=== PATIENT | female | born 1995 ===

== ENCOUNTER 2018-07-24 09:35 | Outpatient (CLI) | payer OTHER ==
[~2018-07-24] VITALS: Ht 154.9 cm; Wt 113.4 kg
== END 2018-07-24 09:50 | disposition home or self-care (01) ==
LOC: OFIC 805 09:35
DX: C73 Malignant neoplasm of thyroid gland (principal); J34.3 Hypertrophy of nasal turbinates; E66.8 Other obesity; J31.0 Chronic rhinitis; R22.1 Localized swelling, mass and lump, neck; J35.1 Hypertrophy of tonsils

== ENCOUNTER 2018-07-31 07:41 | Outpatient (CLI) | payer OTHER ==
[~2018-07-31] VITALS: Ht 152.4 cm; Wt 113.4 kg
[2018-07-31] MEDS ORDERED: FLONASE16 GM NASAL (10:29)
[2018-07-31] MEDS ORDERED: AMOX-CLAV 875-1 EACH PO (10:29)
[2018-07-31] MEDS ORDERED: ZYRTEC10 MG PO (10:29)
[2018-08-01] MEDS ORDERED: AUGMENTIN PO (10:34)
[2018-08-01] MEDS ORDERED: FLONASE PO (10:35)
== END 2018-07-31 08:00 | disposition home or self-care (01) ==
LOC: OFIC 805 07:41
DX: C73 Malignant neoplasm of thyroid gland (principal); E66.8 Other obesity; J31.0 Chronic rhinitis; J34.3 Hypertrophy of nasal turbinates; R22.1 Localized swelling, mass and lump, neck; J35.1 Hypertrophy of tonsils; J01.90 Acute sinusitis, unspecified

== ENCOUNTER 2018-08-01 08:15 | Inpatient (IN) | payer OTHER ==
[~2018-08-01] VITALS: Ht 154.9 cm; Wt 113.4 kg
[~2018-08-01 08:15] MED LIST: AMOX-CLAV 875-1 EACH PO; FLONASE16 GM NASAL; ZYRTEC10 MG PO
[2018-08-01] MEDS ORDERED: AUGMENTIN PO (10:34)
[2018-08-01] MEDS ORDERED: FLONASE PO (10:35)
[2018-08-08] MEDS ORDERED: FLONASE16 GM NASAL (09:45)
[2018-08-13] MEDS ORDERED: SULFAMETHOXAZO1 EACH PO (18:42)
== END 2018-08-14 13:49 | disposition home or self-care (01) | DRG 11 ==
LOC: SURH 08-06 08:15 → O/R 08-06 08:30 → SURH 08-06 10:15 → SURG 08-09 11:21
PROVIDERS: ADMIT Otolaryngology
PROC: 5A1945Z Respiratory Ventilation, 24-96 Consecutive Hours (ICD-10-PCS; 2018-08-06)
PROC: 3E0F7GC Introduction of Other Therapeutic Substance into Respiratory Tract, Via Natural or Artificial Opening (ICD-10-PCS; 2018-08-06)
PROC: B246ZZZ Ultrasonography of Right and Left Heart (ICD-10-PCS; 2018-08-06)
PROC: 0B110F4 Bypass Trachea to Cutaneous with Tracheostomy Device, Open Approach (ICD-10-PCS; principal; 2018-08-06 10:15)
PROC: 0GTK0ZZ Resection of Thyroid Gland, Open Approach (ICD-10-PCS; 2018-08-06 10:15)
PROC: 4A12X4Z Monitoring of Cardiac Electrical Activity, External Approach (ICD-10-PCS; 2018-08-09)
PROC: BW2FZZZ Computerized Tomography (CT Scan) of Neck (ICD-10-PCS; 2018-08-09)
PROC: BW24ZZZ Computerized Tomography (CT Scan) of Chest and Abdomen (ICD-10-PCS; 2018-08-09)
PROC: 0CJS8ZZ Inspection of Larynx, Via Natural or Artificial Opening Endoscopic (ICD-10-PCS; 2018-08-11)
DX: C73 Malignant neoplasm of thyroid gland (principal); J81.0 Acute pulmonary edema; J95.821 Acute postprocedural respiratory failure; J18.1 Lobar pneumonia, unspecified organism; I97.191 Other postprocedural cardiac functional disturbances following other surgery; F33.0 Major depressive disorder, recurrent, mild; J38.02 Paralysis of vocal cords and larynx, bilateral; R00.0 Tachycardia, unspecified; R50.82 Postprocedural fever; D64.89 Other specified anemias; E03.8 Other specified hypothyroidism; F41.8 Other specified anxiety disorders; E66.8 Other obesity; Z88.6 Allergy status to analgesic agent

== ENCOUNTER 2018-08-21 09:31 | Outpatient (CLI) | payer OTHER ==
[~2018-08-21 09:31] MED LIST changes: +AUGMENTIN PO; +FLONASE PO; +SULFAMETHOXAZO1 EACH PO
== END 2018-08-21 09:46 | disposition home or self-care (01) ==
LOC: OFIC 805 09:31
DX: C73 Malignant neoplasm of thyroid gland (principal); E66.8 Other obesity; J31.0 Chronic rhinitis; E03.9 Hypothyroidism, unspecified; Z93.0 Tracheostomy status

== ENCOUNTER 2018-09-04 08:55 | Outpatient (CLI) | payer OTHER ==
[~2018-09-04] VITALS: Ht 152.4 cm; Wt 113.4 kg
== END 2018-09-04 09:15 | disposition home or self-care (01) ==
LOC: OFIC 805 08:55
DX: C73 Malignant neoplasm of thyroid gland (principal); E66.8 Other obesity; Z93.0 Tracheostomy status

== ENCOUNTER → 2018-09-28 08:47 | Outpatient (CLI) | payer OTHER | END | disposition home or self-care (01) | LOC: LAB 08:47 | DX: C73 Malignant neoplasm of thyroid gland (principal); E89.0 Postprocedural hypothyroidism ==

== ENCOUNTER 2018-10-01 09:55 | Outpatient (CLI) | payer OTHER | END 2018-10-01 15:24 | disposition home or self-care (01) | LOC: LAB 09:55 | DX: Z32.00 Encounter for pregnancy test, result unknown (principal) ==

== ENCOUNTER → 2018-10-02 | Outpatient (CLI) | payer OTHER | END | disposition home or self-care (01) | LOC: NUCLEAR 14:00 | DX: C73 Malignant neoplasm of thyroid gland (principal) | CPT/HCPCS: 79005; A9517 ==

== ENCOUNTER 2018-10-09 13:24 | Outpatient (CLI) | payer OTHER | END 2018-10-09 13:51 | disposition home or self-care (01) | LOC: NUCLEAR 13:24 | DX: C73 Malignant neoplasm of thyroid gland (principal); E89.0 Postprocedural hypothyroidism ==

== ENCOUNTER 2018-10-23 08:59 | Outpatient (CLI) | payer OTHER ==
[~2018-10-23] VITALS: Ht 152.4 cm; Wt 119.3 kg
== END 2018-10-23 09:15 | disposition home or self-care (01) ==
LOC: OFIC 805 08:59
DX: F33.0 Major depressive disorder, recurrent, mild (principal); J38.00 Paralysis of vocal cords and larynx, unspecified; C73 Malignant neoplasm of thyroid gland; J31.0 Chronic rhinitis

== ENCOUNTER 2018-11-20 09:35 | Outpatient (CLI) | payer OTHER ==
[~2018-11-20] VITALS: Ht 152.4 cm; Wt 114.8 kg
== END 2018-11-20 09:50 | disposition home or self-care (01) ==
LOC: OFIC 805 09:35
DX: C73 Malignant neoplasm of thyroid gland (principal); J31.0 Chronic rhinitis; R22.1 Localized swelling, mass and lump, neck; C77.0 Secondary and unspecified malignant neoplasm of lymph nodes of head, face and neck

== ENCOUNTER 2019-12-26 10:11 | Outpatient (CLI) | payer OTHER | END 2019-12-26 10:16 | disposition home or self-care (01) | LOC: NUCLEAR 10:11 | PROVIDERS: ATTEND Internal Medicine Sports Medicine | DX: C73 Malignant neoplasm of thyroid gland (principal); E89.0 Postprocedural hypothyroidism | CPT/HCPCS: 78020; 78018; A9528 ==

== ENCOUNTER 2020-01-19 11:30 | Outpatient (CLI) | payer OTHER | END 2020-01-19 11:35 | disposition home or self-care (01) | LOC: SONOGRAMA 11:30 | PROVIDERS: ATTEND Pathology Anatomic Pathology & Clinical Pathology | DX: C73 Malignant neoplasm of thyroid gland (principal) ==

== ENCOUNTER 2020-10-01 09:31 | Outpatient (CLI) | payer OTHER | END 2020-10-01 09:32 | disposition home or self-care (01) | LOC: NUCLEAR 09:31 | PROVIDERS: ATTEND Internal Medicine Sports Medicine | DX: C73 Malignant neoplasm of thyroid gland (principal) | CPT/HCPCS: 78018; 78020; A9528 ==

== ENCOUNTER → 2020-10-08 09:57 | Outpatient (CLI) | payer OTHER | END | disposition home or self-care (01) | LOC: NUCLEAR 09:57 | PROVIDERS: ATTEND Internal Medicine Sports Medicine | DX: C73 Malignant neoplasm of thyroid gland (principal); E89.0 Postprocedural hypothyroidism | CPT/HCPCS: 78018; 78020; A9528 ==

== ENCOUNTER 2021-10-10 23:05 | Emergency (ER) | payer OTHER ==
[~2021-10-10] VITALS: Ht 154.9 cm; Wt 139.7 kg
[2021-10-10] MEDS ORDERED: SYNTHROID200 MCG PO (23:17)
[2021-10-10] MEDS ORDERED: METOPROLOL SUCC50 MG PO (23:17)
[2021-10-10] MEDS ORDERED: SYNTHROID75 MCG PO (23:17)
[2021-10-10] MEDS ORDERED: SERTRALINE HCL100 MG PO (23:18)
[2021-10-10] MEDS ORDERED: CLONAZEPAM0.5 MG PO (23:18)
[2021-10-11] MEDS ORDERED: CIPROFLOXACIN500 MG PO (03:17)
[2021-10-11] MEDS ORDERED: METRONIDAZOLE500 MG PO (03:17)
[2021-10-11] MEDS ORDERED: INTESTINEX680 M1 PO (03:17)
[2021-10-11] MEDS ORDERED: ACETAMINOPHEN650 M2 PO (03:17)
[2021-10-11] MEDS ORDERED: PEPCID AC20 MG PO (03:17)
[2021-10-11] MEDS ORDERED: MUCINEX DM ER1 EAC1 PO (03:17)
[2021-10-11] MEDS ORDERED: VITAMIN C WIT1000 MG PO (03:21)
== END 2021-10-11 03:33 | disposition home or self-care (01) ==
LOC: ER 23:05
DX: U07.1 COVID-19 (principal); B34.9 Viral infection, unspecified; Z88.6 Allergy status to analgesic agent